=== PATIENT | male | born 1995 | race Caucasian/White ===

== ENCOUNTER 2017-01-26 20:22 | Emergency (ER) | payer OTHER ==
[~2017-01-26] VITALS: Ht 180.3 cm; Wt 113.6 kg
[2017-01-26 20:27] VITALS: BP 148/91; TEMP 99.2
[2017-01-26 22:41] VITALS: PULSE 88
== END 2017-01-26 22:57 | disposition home or self-care (01) ==
LOC: COL.ER 20:22
DX: S01.511A Laceration without foreign body of lip, initial encounter (principal); W51.XXXA Accidental striking against or bumped into by another person, initial encounter; Y93.67 Activity, basketball; Y92.39 Other specified sports and athletic area as the place of occurrence of the external cause